=== PATIENT | male | born 1970 | race Two or more races ===

== ENCOUNTER 2024-02-25 14:06 | Observation (INO) | payer OTHER ==
[2024-02-25 14:41] LABS: Basophils # (A) 0.1 k/uL (0-0.2); Basophils % (A) 0 %; Eosinophils # (A) 0.3 k/uL (0-0.7); Eosinophils % (A) 2 %; HCT 33.7 % (39.0-53.0); HGB 11.4 gm/dL (13.0-17.5); Lymphocytes # (A) 1.5 k/uL (1.0-4.8); Lymphocytes % (A) 10 %; MCH 32.6 pg (25.0-35.0); MCV 95.9 fL (80.0-100.0); Mean Platelet Volume 6.8; Monocytes # (A) 0.7 k/uL (0-1.0); Monocytes % (A) 5 %; Neutrophils # (A) 13.1 k/uL (1.3-7.7); Neutrophils % (A) 83 %; Platelet Count 458 k/uL (150-450); RBC 3.52 m/uL (4.30-5.90); RDW 12.1 % (11.5-15.5); WBC 15.9 k/uL (3.8-10.6)
[2024-02-25 14:52] LABS: ALT 96 U/L (4-49); AST 78 U/L (17-59); African American GFR (CKD) >90 (>60 ml/min/1.73 sqM); Albumin 3.3 g/dL (3.5-5.0); Alkaline Phosphatase 268 U/L (38-126); Amylase 39 U/L (30-110); Anion Gap 8 mmol/L; Blood Urea Nitrogen 13 mg/dL (9-20); Calcium 8.6 mg/dL (8.4-10.2); Carbon Dioxide 26 mmol/L (22-30); Chloride 91 mmol/L (98-107); Glucose 98 mg/dL (74-99); Lipase 190 U/L (23-300); Non-African American GFR(CKD) >90 (>60 ml/min/1.73 sqM); Potassium 3.9 mmol/L (3.5-5.1); Sodium 125 mmol/L (137-145); Total Bilirubin 2.1 mg/dL (0.2-1.3); Total Protein 6.1 g/dL (6.3-8.2)
[2024-02-25 14:54] LABS: INR 1.1 (<1.2); Prothrombin Time 11.7 sec (10.0-12.5)
[2024-02-25 14:56] LABS: Partial Thromboplastin Time 20.9 sec (22.0-30.0)
--- NOTE | 2024-02-25 15:15 | ED ---
General Adult HPI - General Chief complaint: Abdominal Pain Stated complaint: Abd pain Time Seen by Provider: 02/25/24 14:10 Source: patient, EMS, RN notes reviewed, old records reviewed Mode of arrival: EMS Limitations: no limitations - History of Present Illness Initial comments: Is a 53-year-old male who presents to the emergency department from [facility]. Patient was sent to us because they diagnosed him with acute cholecystitis and wanted him to see a surgeon here. Patient states symptoms started about a week ago anytime he ate certain foods it would get right upper quadrant pain. Patient states he has been nauseous and vomited. Patient denies chest pain difficulty breathing. Patient denies any fever chills - Related Data Home Medications Medication Instructions Recorded Confirmed LORazepam [Ativan] 1 mg PO TID 09/24/13 09/24/13 Ziprasidone [Geodon] 80 mg PO ONCE 09/24/13 09/24/13 Previous Rx's Medication Instructions Recorded Divalproex ER [Depakote ER] 1,000 mg PO HS #30 tab.er.24h 09/30/13 Gabapentin [Neurontin] 600 mg PO TID #90 cap 09/30/13 Earth Carbonate 450 mg PO BID #60 cap 09/30/13 Tiotropium 18 Mcg/Puff [Spiriva] 1 puff INHALATION RT-DAILY 30 Days 09/30/13 inhaler Ziprasidone [Geodon] 80 mg PO HS #30 cap 09/30/13 chlorproMAZINE [Thorazine] 100 mg PO TID #90 tab 09/30/13 Allergies Allergy/AdvReac Type Severity Reaction Status Date / Time desipramine HCl Allergy Rash/Hives Verified 02/25/24 14:16 [From Norpramin] diphenhydramine HCl Allergy Nausea & Verified 02/25/24 14:16 [From Benadryl] Vomiting grapefruit [Grapefruit] Allergy Swelling Verified 02/25/24 14:16 hydroxyzine HCl Allergy Nausea & Verified 02/25/24 14:16 [From Vistaril] Vomiting hydroxyzine pamoate Allergy Nausea & Verified 02/25/24 14:16 [From Vistaril] Vomiting olanzapine [From Zyprexa] Allergy Confusion Verified 02/25/24 14:16 orange juice [Faulk Juice] Allergy Swelling Verified 02/25/24 14:16 pineapple [Pineapple] Allergy Swelling Verified 02/25/24 14:16 quetiapine fumarate Allergy Rapid Verified 02/25/24 14:16 [From Seroquel] Heart Rate sulfamethoxazole AdvReac Rash/Hives Verified 02/25/24 14:16 [From Bactrim] tomato [Tomato] AdvReac Swelling Verified 02/25/24 14:16 trimethoprim [From Bactrim] AdvReac Rash/Hives Verified 02/25/24 14:16 Review of Systems ROS Statement: Those systems with pertinent positive or pertinent negative responses have been documented in the HPI. ROS Other: All systems not noted in ROS Statement are negative. Past Medical History Past Medical History: COPD Additional Past Medical History / Comment(s): bipolar, borderline disorder, anxiety ptsd History of Any Multi-Drug Resistant Organisms: None Reported Past Surgical History: Orthopedic Surgery Additional Past Surgical History / Comment(s): kidney bladder Past Psychological History: Anxiety, Bipolar, Depression, Panic Disorder, PTSD, Schizoaffective Disorder Past Alcohol Use History: Occasional Past Drug Use History: None Reported General Exam - General Exam Comments Initial Comments: GENERAL: Patient is well-developed and well-nourished. Patient is nontoxic and well- hydrated and is in mild distress. ENT: Neck is soft and supple. No significant lymphadenopathy is noted. Oropharynx is clear. Moist mucous membranes. Neck has full range of motion without eliciting any pain. EYES: The sclera were anicteric and conjunctiva were pink and moist. Extraocular movements were intact and pupils were equal round and reactive to light. Eyelids were unremarkable. PULMONARY: Unlabored respirations. Good breath sounds bilaterally. No audible rales rhonchi or wheezing was noted. CARDIOVASCULAR: There is a regular rate and rhythm without any murmurs gallops or rubs. ABDOMEN: Right upper quadrant abdominal pain SKIN: Skin is clear with no lesions or rashes and otherwise unremarkable. NEUROLOGIC: Patient is alert and oriented x3. Cranial nerves II through XII are grossly int act. Motor and sensory are also intact. Normal speech, volume and content. Symmetrical smile. MUSCULOSKELETAL: Normal extremities with adequate strength and full range of motion. LYMPHATICS: No significant lymphadenopathy is noted PSYCHIATRIC: Normal psychiatric evaluation. Limitations: no limitations Course Vital Signs 02/25/24 14:08 Temperature 99.2 F Pulse Rate 99 Respiratory 18 Rate Blood Pressure 141/95 O2 Sat by Pulse 99 Oximetry Medical Decision Making - Medical Decision Making EKG is interpreted by myself but EKG shows a sinus rhythm at 89 bpm OR interval 157 QRS 94 QT interval 335 QTc of 381. Patient's EKG shows no ST segment elevation or depression Was pt. sent in by a medical professional or institution (NEREIDA Sidhu, OTM CONSULTANT, urgent care, hospital, or senior care...) When possible be specific @ -No Did you speak to anyone other than the patient for history (EMS, parent, family, police, friend...)? What history was obtained from this source @ -No Did you review nursing and triage notes (agree or disagree)? Why? @ -I reviewed and agree with nursing and triage notes Were old charts reviewed (outside hosp., previous admission, EMS record, old EKG, old radiological studies, urgent care reports/EKG's, senior care records)? Report findings @ -No old charts were reviewed Differential Diagnosis? @ -Differential Abdominal Pain Men: Appendicitis, cholecystitis, diverticulosis, ischemic bowel, pancreatitis, hepatitis, UTI, gastroenteritis, AAA, incarcerated hernia, bowel obstruction, constipation, inflammatory bowel, hepatitis, peptic ulcer disease, splenic infarction, perforated viscus, testicular torsion, this is not meant to be an all-inclusive list EKG interpreted by me (3pts min.). @ -As above X-rays interpreted by me (1pt min.). @ -None done CT interpreted by me (1pt min.). @ -None done U/S interpreted by me (1pt. min.). @ -None done What testing was considered but not performed or refused? (CT, X-rays, U/S, labs)? Why? @ -None What meds were considered but not given or refused? Why? @ -None Did you discuss the management of the patient with other professionals (professionals i.e. NEREIDA Sidhu, OTM CONSULTANT, lab, RT, psych nurse, family welfare social work professor, terrazzo polisher helper, teacher, sheriffs officer, showcase maker)? Give summary @ -I spoke with Dr. Hermosillo he agreed to admit the patient admitted the patient I wrote admitting orders Was smoking cessation discussed for >3mins.? @ -No Was critical care preformed (if so, how long)? @ -No Were there social determinants of health that impacted care today? How? (Homelessness, low income, unemployed, alcoholism, drug addiction, transportation, low edu. Level, literacy, decrease access to med. care, snf, rehab)? @ -No Was there de-escalation of care discussed even if they declined (Discuss DNR or withdrawal of care, Hospice)? DNR status @ -No What co-morbidities impacted this encounter? (DM, HTN, Smoking, COPD, CAD, Cancer, CVA, ARF, Chemo, Hep., AIDS, mental health diagnosis, sleep apnea, morbid obesity)? @ -None Was patient admitted / discharged? Hospital course, mention meds given and route, prescriptions, significant lab abnormalities, going to OR and other pe rtinent info. @ -Patient came from [facility] patient did receive a CAT scan there as well as Zosyn. I spoke with Dr. Hermosillo he agreed to admit the patient admit the patient I wrote admitting orders I did give the patient a fluid bolus of 500 cc of normal saline because the patient had a sodium of 125. Undiagnosed new problem with uncertain prognosis? @ -No Drug Therapy requiring intensive monitoring for toxicity (Heparin, Nitro, Insulin, Cardizem)? @ -No Were any procedures done? @ -No Diagnosis/symptom? @ -Acute cholecystitis Acute, or Chronic, or Acute on Chronic? @ -Acute Uncomplicated (without systemic symptoms) or Complicated (systemic symptoms)? @ -Complicated Side effects of treatment? @ -No Exacerbation, Progression, or Severe Exacerbation? @ -No Poses a threat to life or bodily function? How? (Chest pain, USA, NH, pneumonia, PE, COPD, DKA, ARF, appy, cholecystitis, CVA, Diverticulitis, Homicidal, Suicidal, threat to staff... and all critical care pts) @ -Yes this could lead to sepsis and endorgan dysfunction Diagnosis/symptom? @ -Hyponatremia Acute, or Chronic, or Acute on Chronic? @ -Acute Uncomplicated (without systemic symptoms) or Complicated (systemic symptoms)? @ -Complicated Side effects of treatment? @ -None Exacerbation, Progression, or Severe Exacerbation] @ -No Poses a threat to life or bodily function? @ -No - Lab Data Result diagrams: 02/25/24 14:27 02/25/24 14:27 Lab Results 02/25/24 02/25/24 02/25/24 Range/Units 14:27 14:27 14:27 WBC 15.9 H (3.8-10.6) k/uL RBC 3.52 L (4.30-5.90) m/uL Hgb 11.4 L (13.0-17.5) gm/dL Hct 33.7 L (39.0-53.0) % MCV 95.9 (80.0-100.0) fL MCH 32.6 (25.0-35.0) pg MCHC 34.0 (31.0-37.0) g/dL RDW 12.1 (11.5-15.5) % Plt Count 458 H (150-450) k/uL MPV 6.8 Neutrophils % 83 % Lymphocytes % 10 % Monocytes % 5 % Eosinophils % 2 % Basophils % 0 % Neutrophils # 13.1 H (1.3-7.7) k/uL Lymphocytes # 1.5 (1.0-4.8) k/uL Monocytes # 0.7 (0-1.0) k/uL Eosinophils # 0.3 (0-0.7) k/uL Basophils # 0.1 (0-0.2) k/uL PT 11.7 (10.0-12.5) sec INR 1.1 (<1.2) APTT 20.9 L (22.0-30.0) sec Sodium 125 L (137-145) mmol/L Potassium 3.9 (3.5-5.1) mmol/L Chloride 91 L (98-107) mmol/L Carbon Dioxide 26 (22-30) mmol/L Anion Gap 8 mmol/L BUN 13 (9-20) mg/dL Creatinine 0.97 (0.66-1.25) mg/dL Est GFR (CKD-EPI)AfAm >90 (>60 ml/min/1.73 sqM) Est GFR (CKD-EPI)NonAf >90 (>60 ml/min/1.73 sqM) Glucose 98 (74-99) mg/dL Calcium 8.6 (8.4-10.2) mg/dL Total Bilirubin 2.1 H (0.2-1.3) mg/dL AST 78 H (17-59) U/L ALT 96 H (4-49) U/L Alkaline Phosphatase 268 H (38-126) U/L Total Protein 6.1 L (6.3-8.2) g/dL Albumin 3.3 L (3.5-5.0) g/dL Amylase 39 (30-110) U/L Lipase 190 (23-300) U/L Disposition Clinical Impression: Acute cholecystitis, Hyponatremia Disposition: ADMITTED IP TO THIS HOSP Referrals: Dominik Ashton MD [Primary Care Provider] - 1-2 days Time of Disposition: 15:14
[2024-02-25] MEDS: HYDROmorphone 0.5 MG/0.5 ML SYRINGE IVP STA (15:18)
[2024-02-25] MEDS: PIPERACILLIN-TAZOBACTAM 3.375 GM in SODIUM CHLORIDE 0.9% 100 ML IVPB STA (15:37)
[2024-02-25] MEDS: SODIUM CHLORIDE 0.9% 1,000 ML IV ONE (15:42)
[2024-02-25] MEDS ORDERED: haloperidoL 5 MG TAB PO PRN (18:35)
[2024-02-25] MEDS ORDERED: HYDROmorphone 1 MG/ML 1 ML SYRINGE IVP PRN (20:30)
[2024-02-25] MEDS: ATORVASTATIN 10 MG TAB PO SCH (21:35)
[2024-02-25] MEDS: AMITRIPTYLINE HCL 50 MG TAB PO SCH (21:35)
[2024-02-25] MEDS: haloperidoL 5 MG TAB PO SCH (21:35)
[2024-02-25] MEDS: traZODone HCL 100 MG TAB PO SCH (21:35)
[2024-02-25] MEDS: HYDROmorphone 1 MG/ML 1 ML SYRINGE IVP PRN (21:36)
[2024-02-26] MEDS: PIPERACILLIN-TAZOBACTAM 3.375 GM in SODIUM CHLORIDE 0.9% 100 ML IVPB SCH (00:45)
[2024-02-26] MEDS: NON FORMULARY DRUG (Lisdexamfetamine Dimesylate [Vyvanse] 70 MG Capsule) PO SCH (08:02)
[2024-02-26] MEDS: SODIUM CHLORIDE 0.9% 1,000 ML IV SCH (08:04)
[2024-02-26 09:34] LABS: Basophils # (A) 0.1 k/uL (0-0.2); Basophils % (A) 0 %; Eosinophils # (A) 0.3 k/uL (0-0.7); Eosinophils % (A) 3 %; HCT 31.7 % (39.0-53.0); HGB 10.9 gm/dL (13.0-17.5); Lymphocytes # (A) 1.5 k/uL (1.0-4.8); Lymphocytes % (A) 12 %; MCH 33.7 pg (25.0-35.0); MCHC 34.3 g/dL (31.0-37.0); MCV 98.1 fL (80.0-100.0); Mean Platelet Volume 6.4; Monocytes # (A) 0.7 k/uL (0-1.0); Monocytes % (A) 5 %; Neutrophils # (A) 10.1 k/uL (1.3-7.7); Neutrophils % (A) 79 %; Platelet Count 473 k/uL (150-450); RBC 3.23 m/uL (4.30-5.90); RDW 11.7 % (11.5-15.5); WBC 12.7 k/uL (3.8-10.6)
[2024-02-26 09:48] LABS: ALT 77 U/L (4-49); AST 54 U/L (17-59); African American GFR (CKD) >90 (>60 ml/min/1.73 sqM); Albumin 2.8 g/dL (3.5-5.0); Alkaline Phosphatase 261 U/L (38-126); Anion Gap 3 mmol/L; Blood Urea Nitrogen 12 mg/dL (9-20); Calcium 8.3 mg/dL (8.4-10.2); Carbon Dioxide 31 mmol/L (22-30); Chloride 95 mmol/L (98-107); Globulin 2.8 g/dL; Glucose 94 mg/dL (74-99); Non-African American GFR(CKD) 89 (>60 ml/min/1.73 sqM); Sodium 129 mmol/L (137-145); Total Bilirubin 1.5 mg/dL (0.2-1.3); Total Protein 5.6 g/dL (6.3-8.2)
[2024-02-26] MEDS: IV FLUID CONTINUATION 1,000 ML IV ONE ×5 (09:55)
--- NOTE | 2024-02-26 10:02 | P.GSHP ---
History of Present Illness H&P Date: 02/26/24 CHIEF COMPLAINT: Abdominal pain HISTORY OF PRESENT ILLNESS: This is a 53-year-old male who presented the hospital as a transfer from [facility]. He reports about a 2-week history of lower right upper quadrant pain with nausea and vomiting after eating certain foods. Patient had workup completed at [facility] that had reported acute cholecystitis. Patient transferred to [facility] for surgical evaluation. Patient did have elevated LFTs and total bilirubin that are trending downwards. Patient has a history of bladder surgery and kidney surgery as a child.. Denies any cardiac history. PAST MEDICAL HISTORY: COPD, bipolar, anxiety, PTSD, schizoaffective disorder PAST SURGICAL HISTORY: Kidney and bladder surgery as a child MEDICATIONS: See below ALLERGIES: See below SOCIAL HISTORY: No illicit drug use. Occasional EtOH use. REVIEW OF SYSTEMS: CONSTITUTIONAL: Denies fever or chills. HEENT: Denies blurred vision, vision changes, or eye pain. Denies hemoptysis CARDIOVASCULAR: Denies chest pain or pressure. RESPIRATORY: No shortness of breath. GASTROINTESTINAL: See HPI for pertinent findings HEMATOLOGIC: Denies bleeding disorders. GENITOURINARY: Denies any blood in urine or increased urinary frequency. SKIN: Denies pruitis. Denies rash. PHYSICAL EXAM: VITAL SIGNS: Reviewed GENERAL: Well-developed in no acute distress. HEENT: No sclera icterus. ABDOMEN: Soft. Nondistended. Right upper quadrant tenderness and epigastric tenderness with palpation. No rebound or guarding. NEUROLOGIC: Alert and oriented. Cranial nerves II through XII grossly intact. LABORATORY DATA: WBC 15.9 down to 12.7 Hgb 11.4 down to 10.9 platelets 473 Sodium 129 potassium is 4.0 creatinine 0.98 Total bilirubin down from 2.1-1.5 AST 78 down to 54 ALT 96 down to 77 alk phos 268 down to 261 IMAGING: ASSESSMENT: 1. Acute cholecystitis 2. Hyponatremia PLAN: -Patient scheduled for laparoscopic cholecystectomy today with Dr. Hermosillo -Keep patient n.p.o. -Continue IV antibiotics Physician Aircraft Maintenance Director note has been reviewed by physician. Signing provider agrees with the documented findings, assessment, and plan of care. Past Medical History Past Medical History: COPD, Hyperlipidemia Additional Past Medical History / Comment(s): bipolar, borderline disorder, anxiety ptsd History of Any Multi-Drug Resistant Organisms: None Reported Past Surgical History: Orthopedic Surgery Additional Past Surgical History / Comment(s): kidney bladder Smoking Status: Current every day smoker, Vaper - Past Family History Mother History Unknown: Yes Medications and Allergies Home Medications Medication Instructions Recorded Confirmed Type ALPRAZolam [Xanax] 1 mg PO QID PRN 02/25/24 02/25/24 History Amitriptyline HCl [Elavil] 50 mg PO HS 02/25/24 02/25/24 History Atorvastatin [Lipitor] 10 mg PO HS 02/25/24 02/25/24 History Haloperidol Decanoate [Haldol D] 200 mg IM Q21D 02/25/24 02/25/24 History Lisdexamfetamine Dimesylate 70 mg PO DAILY 02/25/24 02/25/24 History [Vyvanse] haloperidoL [Haldol] 5 mg PO DAILY PRN 02/25/24 02/25/24 History haloperidoL [Haldol] 5 mg PO HS 02/25/24 02/25/24 History traZODone HCL 300 mg PO HS 02/25/24 02/25/24 History Allergies Allergy/AdvReac Type Severity Reaction Status Date / Time desipramine HCl Allergy Rash/Hives Verified 02/25/24 15:36 [From Norpramin] diphenhydramine HCl Allergy Nausea & Verified 02/25/24 15:36 [From Benadryl] Vomiting grapefruit [Grapefruit] Allergy Swelling Verified 02/25/24 15:36 hydroxyzine HCl Allergy Nausea & Verified 02/25/24 15:36 [From Vistaril] Vomiting hydroxyzine pamoate Allergy Nausea & Verified 02/25/24 15:36 [From Vistaril] Vomiting olanzapine [From Zyprexa] Allergy Confusion Verified 02/25/24 15:36 orange juice [Perry Juice] Allergy Blisters Verified 02/25/24 15:36 pineapple [Pineapple] Allergy Swelling Verified 02/25/24 15:36 quetiapine fumarate Allergy Rapid Verified 02/25/24 15:36 [From Seroquel] Heart Rate sulfamethoxazole AdvReac Rash/Hives Verified 02/25/24 15:36 [From Bactrim] tomato [Tomato] AdvReac Swelling Verified 02/25/24 15:36 trimethoprim [From Bactrim] AdvReac Rash/Hives Verified 02/25/24 15:36 Surgical - Exam Vital Signs Temp Pulse Resp BP Pulse Ox 99.2 F 99 18 141/95 99 02/25/24 14:08 02/25/24 14:08 02/25/24 14:08 02/25/24 14:08 02/25/24 14:08 Results - Labs 02/26/24 09:22 02/26/24 09:22 Abnormal Lab Results - Last 24 Hours (Table) 02/25/24 02/25/24 02/25/24 Range/Units 14:27 14:27 14:27 WBC 15.9 H (3.8-10.6) k/uL RBC 3.52 L (4.30-5.90) m/uL Hgb 11.4 L (13.0-17.5) gm/dL Hct 33.7 L (39.0-53.0) % Plt Count 458 H (150-450) k/uL Neutrophils # 13.1 H (1.3-7.7) k/uL APTT 20.9 L (22.0-30.0) sec Sodium 125 L (137-145) mmol/L Chloride 91 L (98-107) mmol/L Carbon Dioxide (22-30) mmol/L Calcium (8.4-10.2) mg/dL Total Bilirubin 2.1 H (0.2-1.3) mg/dL AST 78 H (17-59) U/L ALT 96 H (4-49) U/L Alkaline Phosphatase 268 H (38-126) U/L Total Protein 6.1 L (6.3-8.2) g/dL Albumin 3.3 L (3.5-5.0) g/dL 02/26/24 02/26/24 Range/Units 09:22 09:22 WBC 12.7 H (3.8-10.6) k/uL RBC 3.23 L (4.30-5.90) m/uL Hgb 10.9 L (13.0-17.5) gm/dL Hct 31.7 L (39.0-53.0) % Plt Count 473 H (150-450) k/uL Neutrophils # 10.1 H (1.3-7.7) k/uL APTT (22.0-30.0) sec Sodium 129 L (137-145) mmol/L Chloride 95 L (98-107) mmol/L Carbon Dioxide 31 H (22-30) mmol/L Calcium 8.3 L (8.4-10.2) mg/dL Total Bilirubin 1.5 H (0.2-1.3) mg/dL AST (17-59) U/L ALT 77 H (4-49) U/L Alkaline Phosphatase 261 H (38-126) U/L Total Protein 5.6 L (6.3-8.2) g/dL Albumin 2.8 L (3.5-5.0) g/dL Diabetes panel 02/25/24 02/26/24 Range/Units 14:27 09:22 Sodium 125 L 129 L (137-145) mmol/L Potassium 3.9 4.0 (3.5-5.1) mmol/L Chloride 91 L 95 L (98-107) mmol/L Carbon Dioxide 26 31 H (22-30) mmol/L BUN 13 12 (9-20) mg/dL Creatinine 0.97 0.98 (0.66-1.25) mg/dL Glucose 98 94 (74-99) mg/dL Calcium 8.6 8.3 L (8.4-10.2) mg/dL AST 78 H 54 (17-59) U/L ALT 96 H 77 H (4-49) U/L Alkaline Phosphatase 268 H 261 H (38-126) U/L Total Protein 6.1 L 5.6 L (6.3-8.2) g/dL Albumin 3.3 L 2.8 L (3.5-5.0) g/dL Calcium panel 02/25/24 02/26/24 Range/Units 14:27 09:22 Calcium 8.6 8.3 L (8.4-10.2) mg/dL Albumin 3.3 L 2.8 L (3.5-5.0) g/dL Pituitary panel 02/25/24 02/26/24 Range/Units 14:27 09:22 Sodium 125 L 129 L (137-145) mmol/L Potassium 3.9 4.0 (3.5-5.1) mmol/L Chloride 91 L 95 L (98-107) mmol/L Carbon Dioxide 26 31 H (22-30) mmol/L BUN 13 12 (9-20) mg/dL Creatinine 0.97 0.98 (0.66-1.25) mg/dL Glucose 98 94 (74-99) mg/dL Calcium 8.6 8.3 L (8.4-10.2) mg/dL Adrenal panel 02/25/24 02/26/24 Range/Units 14:27 09:22 Sodium 125 L 129 L (137-145) mmol/L Potassium 3.9 4.0 (3.5-5.1) mmol/L Chloride 91 L 95 L (98-107) mmol/L Carbon Dioxide 26 31 H (22-30) mmol/L BUN 13 12 (9-20) mg/dL Creatinine 0.97 0.98 (0.66-1.25) mg/dL Glucose 98 94 (74-99) mg/dL Calcium 8.6 8.3 L (8.4-10.2) mg/dL Total Bilirubin 2.1 H 1.5 H (0.2-1.3) mg/dL AST 78 H 54 (17-59) U/L ALT 96 H 77 H (4-49) U/L Alkaline Phosphatase 268 H 261 H (38-126) U/L Total Protein 6.1 L 5.6 L (6.3-8.2) g/dL Albumin 3.3 L 2.8 L (3.5-5.0) g/dL
[2024-02-26] MEDS: ACETAMINOPHEN TAB 500 MG TAB PO STA (10:33)
[2024-02-26] MEDS: HEPARIN SODIUM,PORCINE 5,000 UNIT/ML 1 ML VIAL SQ STA (10:49)
[2024-02-26] MEDS ORDERED: PROPOFOL 10 MG/ML 20 ML VIAL IV ONE (10:53)
[2024-02-26] MEDS ORDERED: HYDROmorphone (PF) 1 MG/ML ONE (10:53)
[2024-02-26] MEDS ORDERED: GLYCOPYRROLATE 0.2 MG/ML 2 ML VIAL ONE (10:53)
[2024-02-26] MEDS ORDERED: MIDAZOLAM 2 MG/2 ML VIAL ONE (10:53)
[2024-02-26] MEDS ORDERED: fentaNYL (PF) 50 MCG/ML 2 ML AMP ONE (10:53)
[2024-02-26] MEDS ORDERED: SUCCINYLCHOLINE CHLORIDE 200 MG/10 ML VIAL IV ONE (10:53)
[2024-02-26] MEDS ORDERED: NEOSTIGMINE 1 MG/ML 10 ML VIAL ONE (10:53)
[2024-02-26] MEDS ORDERED: LIDOCAINE 1% INJ 10MG/ML (20 ML MDV) ONE (10:53)
[2024-02-26] MEDS ORDERED: ROCURONIUM 10 MG/ML (5 ML VIAL) IV ONE (10:53)
[2024-02-26] MEDS: LIDOCAINE 1%-EPI 1:100,000 20 ML VIAL SQ ONE (11:18)
--- NOTE | 2024-02-26 12:10 | P.OP ---
Date of Procedure: 02/26/24 Preoperative Diagnosis: Acute cholecystitis Postoperative Diagnosis: Gangrenous cholecystitis Procedure(s) Performed: Laparoscopic cholecystectomy Anesthesia: EVANGELINA Surgeon: Regan Hermosillo Estimated Blood Loss (ml): 50 Pathology: other (Gallbladder) Condition: stable Disposition: PACU Description of Procedure: The patient was placed on the operating table. The patient received a general endotracheal tube anesthesia. The patients abdomen was prepped and draped in the usual sterile fashion. Through an infraumbilical stab incision, the fascia of the anterior abdominal wall was grasped with a pair of Kochers and then the Veress needle was placed in the peritoneal cavity. Position of the Veress needle was confirmed with positive drop test. The abdomen was then insufflated. After adequate insufflation, the 10 mm trocar was placed in the peritoneal cavity. Following this the laparoscope was placed in the peritoneal cavity. The patient was placed in the head-up, right side up position and then a 5 mm trocar was placed in the right lateral and right subcostal position under direct visualization. A 8 mm trocar was placed in the epigastric position. The gallbladder appeared to be very inflamed. There is evidence of gangrenous wall changes of the gallbladder. The gallbladder was grasped in the fundus and infundibulum. Traction on the gallbladder was placed in the lateral and the cephalad positions. The area of the cystic duct was very inflamed. In order to prevent a common body injury. It was divided to divide the gallbladder at the neck of the gallbladder. Using a [place] retractor the neck of the gallbladder was dissected. And then a 2-0 Ethibond suture was placed on the neck of the gallbladder. And then this is secured with the tie knot device. Once the neck of the gallbladder was ligated. Using the harmonic scissors the gallbladder was divided and then the bed of the gallbladder was divided using the harmonic scissors. The gallbladder removed from liver bed. The posterior wall was necrotic as well. Once the gallbladder was removed. The gallbladder is placed in a 10 mm Endo Catch and brought out through the epigastric port site. The eye was irrigated. The liver was coagulated with electrocautery. A JUSTO drain was placed in the gallbladder fossa and brought out through the epigastric port site. The skin was then closed interrupted 3-0 Monocryl suture. Dermabond was applied. Patient tolerated well. She was sent to recovery room in stable condition.
[2024-02-26] MEDS ORDERED: ONDANSETRON 4 MG/2 ML VIAL IVP PRN (12:11)
[2024-02-26] MEDS ORDERED: ACETAMINOPHEN TAB 325 MG TAB PO PRN (12:11)
[2024-02-26] MEDS ORDERED: NALOXONE 0.4 MG/ML 1 ML VIAL IV PRN (12:11)
[2024-02-26] MEDS: HYDROmorphone 0.5 MG/0.5 ML SYRINGE IVP PRN ×2 (12:41→13:04)
[2024-02-26] MEDS: LACTATED RINGERS 1,000 ML IV SCH (13:19)
[2024-02-26] MEDS: HYDROcodone/APAP 5-325MG 1 EACH TAB PO PRN (16:45)
[2024-02-26] MEDS: ALPRAZolam 1 MG TAB PO PRN (16:48)
[2024-02-26] MEDS: KETOROLAC 15 MG/ML 1 ML VIAL IVP SCH (18:29)
--- NOTE | 2024-02-27 02:35 | CONS ---
CONSULTATION REASON FOR CONSULTATION: Advice regarding COPD and bipolar and other associated issues, requested by Psychiatry. HISTORY OF PRESENT ILLNESS: This 53-year-old gentleman with a past medical history of COPD, hyperlipidemia, underwent laparoscopic cholecystectomy for gangrenous cholecystitis. There is no history of chest pain or palpitation. PAST MEDICAL HISTORY: COPD, hyperlipidemia. Rest of the history and rest of the chart is also reviewed. HOME MEDICATIONS: Reviewed include trazodone. Dose and rest of medications reviewed. ALLERGIES: Multiple allergies reviewed include Benadryl, multiple allergies noted. FAMILY HISTORY: No history of heart disease or strokes in the family. SOCIAL HISTORY: History of smoking, vaping. REVIEW OF SYSTEMS: A 14-point review of systems is negative except as mentioned earlier. PHYSICAL EXAM: VITAL SIGNS: Pulse is 91, blood pressure 120/88, respirations 16. HEENT: Conjunctivae normal. CARDIOVASCULAR: S1. S2. RESPIRATIONS: Few scattered rhonchi. ABDOMEN: Soft, status post surgery. LEGS: No edema. No swelling. NERVOUS SYSTEM: Nonfocal. LABORATORY DATA: Reviewed. ASSESSMENT: 1. Laparoscopic cholecystectomy for gangrenous cholecystitis. 2. Elevated WBC. 3. Hyponatremia. 4. Elevated bilirubin and LFTs. 5. Chronic obstructive pulmonary disease. 6. Hyperlipidemia. 7. Bipolar, anxiety, depression, panic disorder, PTSD, schizoaffective disorder. RECOMMENDATION: This 53-year-old gentleman presented with multiple complex medical issues, we will monitor the patient closely, continue the current symptomatic treatment. We will initiate broad-spectrum IV antibiotics. Otherwise, continue to monitor. Resume the home medications. DVT prophylaxis. Guarded prognosis. Further recommendations to follow. MMODL / IJN: [id number] /
[2024-02-27 08:17] VITALS: RESP 18; TEMP 97.4
[2024-02-27] MEDS: ENOXAPARIN 40 MG/0.4 ML SYRINGE SQ SCH (08:27)
[2024-02-27 08:57] LABS: ALT 64 U/L (10-49); AST 55 U/L (14-35); Albumin 2.9 g/dL (3.8-4.9); Albumin/Globulin Ratio 1.32 Ratio (1.60-3.17); Alkaline Phosphatase 222 U/L (41-126); BUN/Creat Ratio 8.67 Ratio (12.00-20.00); Blood Urea Nitrogen 7.8 mg/dL (9.0-27.0); Calcium 7.9 mg/dL (8.7-10.3); Carbon Dioxide 25.8 mmol/L (21.6-31.8); Chloride 97 mmol/L (96-109); Globulin 2.2 g/dL (1.6-3.3); Glucose 103 mg/dL (70-110); Potassium 4.1 mmol/L (3.5-5.5); Sodium 130 mmol/L (135-145); Total Bilirubin 0.9 mg/dL (0.3-1.2); Total Protein 5.1 g/dL (6.2-8.2)
[2024-02-27 08:59] LABS: Basophils # (A) 0.05 X 10*3/uL (0.00-0.10); Basophils % (A) 0.7 %; Eosinophils # (A) 0.47 X 10*3/uL (0.04-0.35); Eosinophils % (A) 6.7 %; HCT 26.5 % (39.6-50.0); HGB 8.8 g/dL (13.0-17.0); Lymphocytes % (A) 22.9 %; MCHC 33.2 g/dL (32.0-37.0); MCV 96.4 FL (80.0-97.0); Mean Platelet Volume 8.2 FL (9.5-12.2); Monocytes # (A) 0.53 X 10*3/uL (0.20-1.00); Monocytes % (A) 7.6 %; NRBC Per 100 WBC 0 X 10*3/uL (0.00-0.01); Neutrophils # (A) 4.29 X 10*3/uL (1.80-7.70); Neutrophils % (A) 61.4 %; Platelet Count 410 X 10*3/uL (140-440); RBC 2.75 X 10*6/uL (4.40-5.60); RDW 12.2 % (11.5-14.5); WBC 6.99 X 10*3/uL (4.50-10.00)
[2024-02-27] MEDS: DOCUSATE 100 MG CAP PO SCH (11:00)
--- NOTE | 2024-02-27 12:58 | P.DS ---
Providers Date of admission: 02/25/24 15:26 Expected date of discharge: 02/27/24 Attending physician: Regan Hermosillo Consults: 02/25/24 18:37 Consult Physician Routine Consulting Provider: Josué Cates Consult Reason/Comments: medical management Do you want consulting provider notified?: Yes Primary care physician: Dominik [facility] Hospital Course: Discharge diagnosis 1. Gangrenous cholecystitis Hospital course This is a 53-year-old male who presented the hospital as a transfer from [place]. He reports about a 2-week history of lower right upper quadrant pain with nausea and vomiting after eating certain foods. Patient had workup completed at [facility] that had reported acute cholecystitis. Patient transferred to [facility] for surgical evaluation. Patient did have elevated LFTs and total bilirubin with repeat labs trending down. Patient status post laparoscopic cholecystectomy. Tolerated surgery well. Pain is controlled. He is having flatus. He has been up and ambulating. He is afebrile. White count has normalized. Incision sites clean dry and intact. He is stable for discharge. Please refer to chart for any further details. Physician Anger Control Counselor note has been reviewed by physician. Signing provider agrees with the documented findings, assessment, and plan of care. Patient Condition at Discharge: Stable Plan - Discharge Summary New Discharge Prescriptions: New Docusate [Colace] 100 mg PO BID #30 capsule HYDROcodone/APAP 5-325MG [Mode 5-325] 1 tab PO Q6HR PRN 3 Days #12 tab PRN Reason: Pain Continue traZODone HCL 300 mg PO HS Amitriptyline HCl [Elavil] 50 mg PO HS ALPRAZolam [Xanax] 1 mg PO QID PRN PRN Reason: Anxiety haloperidoL [Haldol] 5 mg PO DAILY PRN PRN Reason: psychiatric sypmtoms Lisdexamfetamine Dimesylate [Vyvanse] 70 mg PO DAILY Haloperidol Decanoate [Haldol D] 200 mg IM Q21D haloperidoL [Haldol] 5 mg PO HS Atorvastatin [Lipitor] 10 mg PO HS Discharge Medication List ALPRAZolam [Xanax] 1 mg PO QID PRN 02/25/24 [History] Amitriptyline HCl [Elavil] 50 mg PO HS 02/25/24 [History] Atorvastatin [Lipitor] 10 mg PO HS 02/25/24 [History] Haloperidol Decanoate [Haldol D] 200 mg IM Q21D 02/25/24 [History] Lisdexamfetamine Dimesylate [Vyvanse] 70 mg PO DAILY 02/25/24 [History] haloperidoL [Haldol] 5 mg PO DAILY PRN 02/25/24 [History] haloperidoL [Haldol] 5 mg PO HS 02/25/24 [History] traZODone HCL 300 mg PO HS 02/25/24 [History] Docusate [Colace] 100 mg PO BID #30 capsule 02/27/24 [Rx] HYDROcodone/APAP 5-325MG [Mode 5-325] 1 tab PO Q6HR PRN 3 Days #12 tab 02/27/24 [Rx] Follow up Appointment(s)/Referral(s): Dominik Ashton MD [Primary Care Provider] - 1-2 days Regan Hermosillo MD [STAFF PHYSICIAN] - 1 Week Activity/Diet/Wound Care/Special Instructions: No driving while taking Mode No lifting over 10 pounds Shower daily. No soaking or tub baths for 2 weeks Very light activity until you are reevaluated at your follow up appointment with your surgeon Keep a log of JUSTO drain output and bring with you to your follow-up appointment Milk/strip drains 2-3 times a day Repeat CBC lab work in 2 days with PCP Discharge Disposition: HOME SELF-CARE
[2024-02-27 13:53] VITALS: BP 118/79; PULSE 78
--- NOTE | 2024-02-28 01:14 | PN ---
PROGRESS NOTE DATE OF SERVICE: 02/27/2024 SUBJECTIVE: This is a 53-year-old gentleman admitted after laparoscopic cholecystectomy. He is improving significantly. No chest pain. No palpitation. OBJECTIVE: VITAL SIGNS: Pulse is 78, blood pressure 118/70, respirations 18. CHEST: Conjunctivae normal. NECK: No JVD. CARDIOVASCULAR: S1, S2. RESPIRATIONS: Breath sounds diminished at the bases. ABDOMEN: Soft, status post surgery. LABORATORY DATA: Reviewed. ASSESSMENT: 1. Laparoscopic cholecystomy for gangrenous cholecystitis. 2. Elevated WBC. 3. Hyponatremia. 4. Elevated bilirubin and LFTs. 5. Chronic obstructive pulmonary disease. 6. Hyperlipidemia. 7. Bipolar, anxiety, depression. RECOMMENDATIONS: Recommend to continue current medications and continue symptomatic treatment. Otherwise, at this time, white count is normalized. Recommend follow up in the outpatient setting and rest of the recommendations per Surgery. Follow closely with Primary Physician also. MMODL / IJN: [id number] /
== END 2024-02-27 14:38 | disposition home or self-care (01) ==
LOC: SUPCPDRO 14:06 → EC 14:06 → 4SSUR 15:26 → INTOOBSV 15:26 → 4SSUR 17:55
PROVIDERS: ADMIT Surgery; ATTEND Surgery
DX: K80.00 Calculus of gallbladder with acute cholecystitis without obstruction (principal); K82.A1 Gangrene of gallbladder in cholecystitis; E87.1 Hypo-osmolality and hyponatremia; F25.9 Schizoaffective disorder, unspecified; F31.9 Bipolar disorder, unspecified; F41.0 Panic disorder [episodic paroxysmal anxiety]; F43.10 Post-traumatic stress disorder, unspecified; F17.290 Nicotine dependence, other tobacco product, uncomplicated; J44.9 Chronic obstructive pulmonary disease, unspecified; E78.5 Hyperlipidemia, unspecified; Z79.899 Other long term (current) drug therapy; Z88.8 Allergy status to other drugs, medicaments and biological substances; Z88.2 Allergy status to sulfonamides
CPT/HCPCS: 47562; 96376 ×2; 96365; 96366 ×2; 96372; 96375; 99285; 36415; 93005; 88304; 80053 ×3; 82150; 83690; 85025 ×3; 85610; 85730; G0378 ×3; J2543 ×2; J2250; J0330; J1644; J2710; J2003; J1650; J3010; J1171 ×4; J1885 ×2; J2704; J1596; 96361; 96374

== ENCOUNTER 2024-03-04 21:33 | Observation (INO) | payer OTHER ==
--- NOTE | 2024-03-04 21:51 | ED ---
Abdominal Pain HPI - General Stated Complaint: Post op abd pain Time Seen by Provider: 03/04/24 21:36 - History of Present Illness Initial Comments: Patient is a 53-year-old man who presents to have evaluation of abdominal pain. The patient states that the pain started a little after noon today. He describes it as an aching and cramping. He indicates the area from suprapubic portion of the abdomen up to the epigastric. He states that he also has had some nausea and 2 episodes of vomiting. No hematemesis or coffee-ground's noted. The patient does note that he had laparoscopic cholecystectomy [address] Hermosillo[address] That he was feeling better following the surgery until today. Patient states he also was concerned because the area from the Emre- Stone drain insertion is somewhat firmer than usual and there is little bit of redness associated. MD Complaint: abdominal pain Onset/Timin -: hour(s) Location: periumbilical, epigastric, suprapubic Radiation: none Migration to: no migration Severity: moderate Quality: aching Consistency: constant Improves With: nothing Worsens With: nothing Associated Symptoms: nausea, vomiting - Related Data Home Medications Medication Instructions Recorded Confirmed ALPRAZolam [Xanax] 1 mg PO QID PRN 02/25/24 02/25/24 Amitriptyline HCl [Elavil] 50 mg PO HS 02/25/24 02/25/24 Atorvastatin [Lipitor] 10 mg PO HS 02/25/24 02/25/24 Haloperidol Decanoate [Haldol D] 200 mg IM Q21D 02/25/24 02/25/24 Lisdexamfetamine Dimesylate 70 mg PO DAILY 02/25/24 02/25/24 [Vyvanse] haloperidoL [Haldol] 5 mg PO DAILY PRN 02/25/24 02/25/24 haloperidoL [Haldol] 5 mg PO HS 02/25/24 02/25/24 traZODone HCL 300 mg PO HS 02/25/24 02/25/24 Previous Rx's Medication Instructions Recorded Docusate [Colace] 100 mg PO BID #30 capsule 02/27/24 HYDROcodone/APAP 5-325MG [[place] 1 tab PO Q6HR PRN 3 Days #12 tab 02/27/24 5-325] Allergies Allergy/AdvReac Type Severity Reaction Status Date / Time desipramine HCl Allergy Rash/Hives Verified 02/25/24 15:36 [From Norpramin] diphenhydramine HCl Allergy Nausea & Verified 02/25/24 15:36 [From Benadryl] Vomiting grapefruit [Grapefruit] Allergy Swelling Verified 02/25/24 15:36 hydroxyzine HCl Allergy Nausea & Verified 02/25/24 15:36 [From Vistaril] Vomiting hydroxyzine pamoate Allergy Nausea & Verified 02/25/24 15:36 [From Vistaril] Vomiting olanzapine [From Zyprexa] Allergy Confusion Verified 02/25/24 15:36 orange juice [[place] Juice] Allergy Blisters Verified 02/25/24 15:36 pineapple [Pineapple] Allergy Swelling Verified 02/25/24 15:36 quetiapine fumarate Allergy Rapid Verified 02/25/24 15:36 [From Seroquel] Heart Rate sulfamethoxazole AdvReac Rash/Hives Verified 02/25/24 15:36 [From Bactrim] tomato [Tomato] AdvReac Swelling Verified 02/25/24 15:36 trimethoprim [From Bactrim] AdvReac Rash/Hives Verified 02/25/24 15:36 Review of Systems ROS Statement: Those systems with pertinent positive or pertinent negative responses have been documented in the HPI. ROS Other: All systems not noted in ROS Statement are negative. Constitutional: Denies: fever, chills, weakness Respiratory: Denies: cough, dyspnea Cardiovascular: Denies: chest pain, palpitations, edema, syncope Gastrointestinal: Reports: abdominal pain, nausea, vomiting. Denies: diarrhea, constipation, melena, hematochezia Genitourinary: Denies: dysuria, frequency, hematuria, testicular pain Musculoskeletal: Denies: back pain Skin: Denies: rash Neurological: Denies: headache, weakness, numbness Past Medical History Past Medical History: COPD, Hyperlipidemia Additional Past Medical History / Comment(s): bipolar, borderline disorder, anxiety ptsd History of Any Multi-Drug Resistant Organisms: None Reported Past Surgical History: Orthopedic Surgery Additional Past Surgical History / Comment(s): kidney bladder Smoking Status: Current every day smoker, Vaper - Past Family History Mother History Unknown: Yes General Exam General appearance: alert, in no apparent distress Head exam: Present: atraumatic, normocephalic Eye exam: Present: normal appearance. Absent: scleral icterus, conjunctival injection ENT exam: Present: normal oropharynx Neck exam: Present: normal inspection Respiratory exam: Present: normal lung sounds bilaterally. Absent: respiratory distress, wheezes, rales, rhonchi, stridor, accessory muscle use Cardiovascular Exam: Present: regular rate, normal rhythm, normal heart sounds. Absent: systolic murmur, diastolic murmur, rubs, gallop GI/Abdominal exam: Present: soft, tenderness, other (The Emre-Stone insertion site does have mild surrounding erythema and some fullness.). Absent: distended, guarding, rebound, rigid, mass Extremities exam: Present: normal inspection, normal capillary refill. Absent: pedal edema, calf tenderness Back exam: Present: normal inspection. Absent: CVA tenderness (R), CVA tenderne ss (L) Neurological exam: Present: alert Skin exam: Present: warm, dry, intact, normal color. Absent: rash Disposition Referrals: Dominik Ashton MD [Primary Care Provider] - 1-2 days
[2024-03-04] MEDS: SODIUM CHLORIDE 0.9% 1,000 ML IV STA (22:00)
[2024-03-04] MEDS: MORPHINE SULFATE 4 MG/ML SYRINGE IV STA ×2 (22:01→22:51)
[2024-03-04 22:03] LABS: Basophils % (A) 0 %; Eosinophils # (A) 0.2 k/uL (0-0.7); Eosinophils % (A) 1 %; HCT 37.6 % (39.0-53.0); HGB 12.7 gm/dL (13.0-17.5); Lymphocytes % (A) 4 %; MCH 32.3 pg (25.0-35.0); MCHC 33.7 g/dL (31.0-37.0); MCV 95.7 fL (80.0-100.0); Monocytes # (A) 0.5 k/uL (0-1.0); Monocytes % (A) 2 %; Neutrophils # (A) 21.9 k/uL (1.3-7.7); Neutrophils % (A) 93 %; Platelet Count 712 k/uL (150-450); RBC 3.93 m/uL (4.30-5.90); RDW 11.9 % (11.5-15.5); WBC 23.7 k/uL (3.8-10.6)
[2024-03-04 22:21] LABS: ALT 50 U/L (4-49); AST 26 U/L (17-59); African American GFR (CKD) >90 (>60 ml/min/1.73 sqM); Albumin 3.8 g/dL (3.5-5.0); Alkaline Phosphatase 177 U/L (38-126); Amylase 52 U/L (30-110); Anion Gap 7 mmol/L; Blood Urea Nitrogen 11 mg/dL (9-20); C Reactive Protein 8.9 mg/dL (<1.0); Calcium 9.3 mg/dL (8.4-10.2); Carbon Dioxide 27 mmol/L (22-30); Chloride 92 mmol/L (98-107); Glucose 153 mg/dL (74-99); Lipase 199 U/L (23-300); Non-African American GFR(CKD) >90 (>60 ml/min/1.73 sqM); Potassium 4.6 mmol/L (3.5-5.1); Sodium 126 mmol/L (137-145); Total Protein 6.8 g/dL (6.3-8.2)
[2024-03-04] MEDS: ONDANSETRON 4 MG/2 ML VIAL IVP STA (22:50)
[2024-03-04] MEDS: IOPAMIDOL CONTRAST (ORAL USE) VIAL PO PRN (22:51)
--- NOTE | 2024-03-05 | CT ---
EXAM: CT Abdomen and Pelvis With Intravenous Contrast CLINICAL HISTORY: ITS.REASON CT Reason: abdominal pain TECHNIQUE: Axial computed tomography images of the abdomen and pelvis with intravenous contrast. CTDI is 19.2 mGy and DLP is 1059.4 mGy-cm. This CT exam was performed using one or more of the following dose reduction techniques: automated exposure control, adjustment of the mA and/or kV according to patient size, and/or use of iterative reconstruction technique. COMPARISON: No relevant prior studies available. FINDINGS: Lung bases: Unremarkable. No mass. No consolidation. ABDOMEN: Liver: Unremarkable. No mass. Gallbladder and bile ducts: Unremarkable. No calcified stones. No ductal dilation. Pancreas: Unremarkable. No mass. No ductal dilation. Spleen: Unremarkable. No splenomegaly. Adrenals: Unremarkable. No mass. Kidneys and ureters: Unremarkable. No solid mass. No hydronephrosis. Stomach and bowel: Moderate fecal retention, correlate for constipation. No obstruction. No mucosal thickening. PELVIS: Appendix: No findings to suggest acute appendicitis. Bladder: Unremarkable. No mass. Reproductive: Unremarkable as visualized. ABDOMEN and PELVIS: Intraperitoneal space: Percutaneous catheter terminates in the RIGHT upper quadrant. Mild free fluid in the RIGHT upper quadrant/gallbladder fossa. No free air. Bones/joints: No acute fracture. No dislocation. Soft tissues: Unremarkable. Vasculature: Unremarkable. No abdominal aortic aneurysm. Lymph nodes: Unremarkable. No enlarged lymph nodes. IMPRESSION: 1. Percutaneous catheter terminates in the RIGHT upper quadrant. Mild free fluid in the RIGHT upper quadrant/gallbladder fossa. 2. Moderate fecal retention, correlate for constipation.
[2024-03-05] MEDS: ONDANSETRON 4 MG/2 ML VIAL IVP STA (01:11)
[2024-03-05] MEDS: PEG 3350 (236 GM/BTL) + LYTES 4,000 ML BOTTLE PO ONE (01:12)
[2024-03-05 01:30] LABS: Appearance,Urine Clear (Clear); Bilirubin,Urine Negative (Negative); Blood,Urine Negative (Negative); Color,Urine Yellow; Glucose,Urine (UA) Negative (Negative); Ketones,Urine 1+ (Negative); Leukocyte Esterase,Urine Negative (Negative); Nitrite,Urine Negative (Negative); Protein,Urine Negative (Negative); Specific Gravity,Urine 1.012 (1.001-1.035)
[2024-03-05] MEDS ORDERED: MAG HYDROX/AL HYDROX/SIMETH 30 ML CUP PO PRN (01:41)
[2024-03-05] MEDS ORDERED: ACETAMINOPHEN TAB 325 MG TAB PO PRN (01:41)
[2024-03-05] MEDS ORDERED: NALOXONE 0.4 MG/ML 1 ML VIAL IV PRN (01:41)
[2024-03-05] MEDS ORDERED: ALPRAZolam 1 MG TAB PO PRN (01:55)
[2024-03-05] MEDS ORDERED: haloperidoL 5 MG TAB PO PRN (01:55)
[2024-03-05] MEDS: traZODone HCL 100 MG TAB PO SCH (02:32)
[2024-03-05] MEDS: SODIUM CHLORIDE 0.9% 1,000 ML IV SCH (02:33)
[2024-03-05] MEDS: AMITRIPTYLINE HCL 50 MG TAB PO SCH (02:33)
[2024-03-05] MEDS: haloperidoL 5 MG TAB PO SCH (02:33)
[2024-03-05] MEDS: MORPHINE SULFATE 4 MG/ML SYRINGE IV PRN (03:45)
[2024-03-05] MEDS: KETOROLAC 15 MG/ML 1 ML VIAL IVP PRN (06:21)
[2024-03-05] MEDS: PANTOPRAZOLE 40 MG/10 ML VIAL IV SCH (09:34)
[2024-03-05] MEDS: LACTULOSE 20 GM/30 ML CUP PO SCH (09:34)
[2024-03-05] MEDS: NON FORMULARY DRUG (Lisdexamfetamine Dimesylate [Vyvanse] 70 MG Capsule) PO SCH (10:02)
--- NOTE | 2024-03-05 13:28 | P.GSHP ---
History of Present Illness H&P Date: 03/05/24 CHIEF COMPLAINT: Abdominal pain HISTORY OF PRESENT ILLNESS: This is a 53-year-old male with a recent laparoscopic cholecystectomy for gangrenous cholecystitis about [address] Hermosillo. Patient reports that yesterday he started to have increase in abdominal pain. Patient describes pain in the suprapubic area as well as right upper quadrant. But then reports that it hurts all over the abdomen. Patient reports he has not had a bowel movement in a week. He has been nauseated. He has had some vomiting. He had a CT scan abdomen and pelvis completed that reported percutaneous catheter terminates in the right upper quadrant. Mild free fluid in the right upper quadrant/gallbladder fossa. Moderate fecal retention correlate for constipation. Patient was started on lactulose. He did have elevated white count and [place] mildly tachycardic. Patient reports his JUSTO drain output had been about 60 mL daily and has decreased since yesterday. Per nursing staff JUSTO drain had 10 mL serosanguineous output today. Patient also having urinary retention required to be straight cathed x 2 and is having a Rivera catheter placed. PAST MEDICAL HISTORY: COPD, hyperlipidemia, bipolar, borderline disorder, anxiety, PTSD PAST SURGICAL HISTORY: See below MEDICATIONS: See below ALLERGIES: See below SOCIAL HISTORY: No illicit drug use. REVIEW OF SYSTEMS: CONSTITUTIONAL: Denies fever or chills. HEENT: Denies blurred vision, vision changes, or eye pain. Denies hemoptysis CARDIOVASCULAR: Denies chest pain or pressure. RESPIRATORY: No shortness of breath. GASTROINTESTINAL: See HPI for pertinent findings HEMATOLOGIC: Denies bleeding disorders. GENITOURINARY: Denies any blood in urine or increased urinary frequency. SKIN: Denies pruitis. Denies rash. PHYSICAL EXAM: VITAL SIGNS: Reviewed GENERAL: Well-developed in no acute distress. HEENT: No sclera icterus. Extraocular movements grossly intact. Moist buccal mucosa. Head is atraumatic, normocephalic. No nasal drainage. ABDOMEN: Soft. Mildly distended. Diffuse tenderness. He is tender with palpation to the suprapubic area and right upper quadrant. JUSTO drain serosanguineous drainage, possible bilious color. Small amount of mild erythema around JUSTO drain site insertion. No drainage noted. NEUROLOGIC: Alert and oriented. Cranial nerves II through XII grossly intact. LABORATORY DATA: WBC 23.7 Hgb 12.7 platelets 712 Sodium 126 potassium 4.6 creatinine 0.93 Lactic acid 1.2 Total bilirubin 1.0 AST 26 ALT 50 alk phos 177 CRP 8.9 Lipase 199 IMAGING: CT scan abdomen pelvis as stated above ASSESSMENT: 1. Abdominal pain 2. Leukocytosis with abdominal pain and recent laparoscopic cholecystectomy. CT scan had reported mild free fluid in the right upper quadrant. Need to rule out bile leak. 3. Constipation 4. Urinary retention PLAN: -HIDA scan ordered to rule out bile leak -Rivera catheter placed for urinary retention -Continue lactulose twice a day for constipation -Repeat labs now and in a.m. -Continue antibiotic -Medical service consulted for medical management -Continue pain management -Continue antiemetics -GI prophylaxis Protonix and DVT prophylaxis subcu heparin Physician Configuration Analyst note has been reviewed by physician. Signing provider agrees with the documented findings, assessment, and plan of care. I have personally seen and examined the patient, reviewed the LACE PINNER /PAs history, exam and MDM and agree with the assessment and plan as written. Based on total visit time, I have performed more than 50% of the visit. As above: Patient came to the ER last night with increasing abdominal pain. Was found to have significant leukocytosis. Per ER discussion no bile seen in the drain that was left at the time of surgery. When I saw the patient he had complaints of diffuse tenderness without peritoneal signs. Drain was milked and there was a gold color to the fluid suggesting possible tinge of bile. HIDA scan was ordered showing suspected bile leak. As the afternoon progressed waiting for the HIDA scan results his drain was noted to appear olive green in color. Patient unfortunately is only having about 10 to 25 cc of output per shift and CAT scan showing some perihepatic fluid and pelvic fluid. Not convinced the drain is working appropriately and adequately. Patient will require transfer to tertiary care center for GI evaluation and ERCP with stent placement to control this bile leak in all likelihood. In the meanwhile given the patient's climbing white blood cell count, tachycardia, and now malou bilious drainage will proceed with diagnostic laparoscopy with washout and additional drain placement. Possible laparotomy, possible control of bile leak if seen. Risks of bleeding, infection, progressive sepsis, persistent bile leak, possible need for further surgery, bile duct injury, bowel injury, conversion to an open procedure reviewed. He understands and wishes to proceed. Past Medical History Past Medical History: COPD, Hyperlipidemia Additional Past Medical History / Comment(s): bipolar, borderline disorder, anxiety ptsd, urinary retention/stright cath History of Any Multi-Drug Resistant Organisms: None Reported Past Surgical History: Orthopedic Surgery Additional Past Surgical History / Comment(s): kidney bladder, cholecystectomy 02/26/24 Past Psychological History: Anxiety, Bipolar, Depression, Panic Disorder, PTSD, Schizoaffective Disorder Smoking Status: Current every day smoker, Vaper Past Alcohol Use History: Occasional Past Drug Use History: None Reported - Past Family History Mother History Unknown: Yes Medications and Allergies Home Medications Medication Instructions Recorded Confirmed Type ALPRAZolam [Xanax] 1 mg PO QID PRN 02/25/24 03/05/24 History Amitriptyline HCl [Elavil] 50 mg PO HS 02/25/24 03/05/24 History Atorvastatin [Lipitor] 10 mg PO HS 02/25/24 03/05/24 History Haloperidol Decanoate [Haldol D] 200 mg IM Q21D 02/25/24 03/05/24 History Lisdexamfetamine Dimesylate 70 mg PO DAILY 02/25/24 03/05/24 History [Vyvanse] haloperidoL [Haldol] 5 mg PO DAILY PRN 02/25/24 03/05/24 History haloperidoL [Haldol] 5 mg PO HS 02/25/24 03/05/24 History traZODone HCL 300 mg PO HS 02/25/24 03/05/24 History Docusate [Colace] 100 mg PO BID #30 capsule 02/27/24 03/05/24 Rx HYDROcodone/APAP 5-325MG [[place] 1 tab PO Q6HR PRN 3 Days #12 tab 02/27/2403/05 Rx 5-325] Allergies Allergy/AdvReac Type Severity Reaction Status Date / Time desipramine HCl Allergy Rash/Hives Verified 03/05/24 07:04 [From Norpramin] diphenhydramine HCl Allergy Nausea & Verified 03/05/24 07:04 [From Benadryl] Vomiting grapefruit [Grapefruit] Allergy Swelling Verified 03/05/24 07:04 hydroxyzine HCl Allergy Nausea & Verified 03/05/24 07:04 [From Vistaril] Vomiting hydroxyzine pamoate Allergy Nausea & Verified 03/05/24 07:04 [From Vistaril] Vomiting olanzapine [From Zyprexa] Allergy Confusion Verified 03/05/24 07:04 orange juice [[place] Juice] Allergy Blisters Verified 03/05/24 07:04 pineapple [Pineapple] Allergy Swelling Verified 03/05/24 07:04 quetiapine fumarate Allergy Rapid Verified 03/05/24 07:04 [From Seroquel] Heart Rate sulfamethoxazole AdvReac Rash/Hives Verified 03/05/24 07:04 [From Bactrim] tomato [Tomato] AdvReac Swelling Verified 03/05/24 07:04 trimethoprim [From Bactrim] AdvReac Rash/Hives Verified 03/05/24 07:04 Surgical - Exam Vital Signs Temp Pulse Resp BP Pulse Ox 98 F 89 18 132/89 98 03/04/24 22:04 03/04/24 22:04 03/04/24 22:04 03/04/24 22:04 03/04/24 22:04 Results - Labs 03/05/24 15:04 03/05/24 15:04 Abnormal Lab Results - Last 24 Hours (Table) 03/04/24 03/04/24 03/05/24 Range/Units 21:57 21:57 01:38 WBC 23.7 H (3.8-10.6) k/uL RBC 3.93 L (4.30-5.90) m/uL Hgb 12.7 L (13.0-17.5) gm/dL Hct 37.6 L (39.0-53.0) % Plt Count 712 H (150-450) k/uL Neutrophils # 21.9 H (1.3-7.7) k/uL Sodium 126 L (137-145) mmol/L Chloride 92 L (98-107) mmol/L Glucose 153 H (74-99) mg/dL ALT 50 H (4-49) U/L Alkaline Phosphatase 177 H (38-126) U/L C-Reactive Protein 8.9 H (<1.0) mg/dL Urine Ketones 1+ H (Negative) Diabetes panel 03/04/24 Range/Units 21:57 Sodium 126 L (137-145) mmol/L Potassium 4.6 (3.5-5.1) mmol/L Chloride 92 L (98-107) mmol/L Carbon Dioxide 27 (22-30) mmol/L BUN 11 (9-20) mg/dL Creatinine 0.93 (0.66-1.25) mg/dL Glucose 153 H (74-99) mg/dL Calcium 9.3 (8.4-10.2) mg/dL AST 26 (17-59) U/L ALT 50 H (4-49) U/L Alkaline Phosphatase 177 H (38-126) U/L Total Protein 6.8 (6.3-8.2) g/dL Albumin 3.8 (3.5-5.0) g/dL Calcium panel 03/04/24 Range/Units 21:57 Calcium 9.3 (8.4-10.2) mg/dL Albumin 3.8 (3.5-5.0) g/dL Pituitary panel 03/04/24 Range/Units 21:57 Sodium 126 L (137-145) mmol/L Potassium 4.6 (3.5-5.1) mmol/L Chloride 92 L (98-107) mmol/L Carbon Dioxide 27 (22-30) mmol/L BUN 11 (9-20) mg/dL Creatinine 0.93 (0.66-1.25) mg/dL Glucose 153 H (74-99) mg/dL Calcium 9.3 (8.4-10.2) mg/dL Adrenal panel 03/04/24 Range/Units 21:57 Sodium 126 L (137-145) mmol/L Potassium 4.6 (3.5-5.1) mmol/L Chloride 92 L (98-107) mmol/L Carbon Dioxide 27 (22-30) mmol/L BUN 11 (9-20) mg/dL Creatinine 0.93 (0.66-1.25) mg/dL Glucose 153 H (74-99) mg/dL Calcium 9.3 (8.4-10.2) mg/dL Total Bilirubin 1.0 (0.2-1.3) mg/dL AST 26 (17-59) U/L ALT 50 H (4-49) U/L Alkaline Phosphatase 177 H (38-126) U/L Total Protein 6.8 (6.3-8.2) g/dL Albumin 3.8 (3.5-5.0) g/dL
--- NOTE | 2024-03-05 15:14 | NM ---
EXAMINATION TYPE: NM hepatobiliary wo EF DATE OF EXAM: 03/05/2024 COMPARISON: CT abdomen and pelvis 02/25/2024, 02/25/2024 CLINICAL INDICATION: Male, 53 years old with history of abdominal pain, recent lap luana; TECHNIQUE: After the intravenous administration of 5.31 mCi Tc 99m Mebrofenin hepatobiliary scintigra phy is performed. Immediate images post injection. FINDINGS: Normal uptake of radiotracer is identified within the liver within 5 minutes. The gallbladder is not identified consistent reported history of cholecystectomy. Patient vomited during the exam which limi ts evaluation. At 15 to 20 minutes there is curvilinear radiotracer inferior to the right hepatic lob e corresponding to position of drainage catheter. Radiotracer uptake is identified within the small b owel at 45 minutes. No other radiotracer activity identified. IMPRESSION: Postcholecystectomy changes with radiotracer uptake identified coursing through right upper quadrant drainage catheter which raises concern for biliary leak. No other sites of abnormal radiotracer ident ified. [facility], , 03/05/2024 3:12 PM
[2024-03-05] MEDS: ONDANSETRON 4 MG/2 ML VIAL IVP PRN (15:16)
[2024-03-05 15:28] LABS: HCT 38.8 % (39.0-53.0); MCH 32.4 pg (25.0-35.0); MCHC 33.4 g/dL (31.0-37.0); Mean Platelet Volume 6.6; Platelet Count 797 k/uL (150-450); RDW 12.5 % (11.5-15.5); WBC 41.9 k/uL (3.8-10.6)
[2024-03-05 15:33] LABS: ALT 42 U/L (4-49); AST 26 U/L (17-59); African American GFR (CKD) >90 (>60 ml/min/1.73 sqM); Albumin 3.9 g/dL (3.5-5.0); Albumin/Globulin Ratio 1.3; Alkaline Phosphatase 227 U/L (38-126); Anion Gap 9 mmol/L; Blood Urea Nitrogen 14 mg/dL (9-20); Calcium 9.6 mg/dL (8.4-10.2); Carbon Dioxide 24 mmol/L (22-30); Chloride 92 mmol/L (98-107); Glucose 148 mg/dL (74-99); Non-African American GFR(CKD) 82 (>60 ml/min/1.73 sqM); Sodium 125 mmol/L (137-145); Total Bilirubin 1.8 mg/dL (0.2-1.3); Total Protein 6.9 g/dL (6.3-8.2)
[2024-03-05] MEDS: TAMSULOSIN 0.4 MG CAP.ER.24H PO SCH (15:55)
[2024-03-05 16:19] LABS: Band Neutrophils % 20 %; Lymphocytes # (M) 1.26 k/uL (1.0-4.8); Monocytes # (M) 0.42 k/uL (0-1.0); Neutrophils % (M) 76 %; Nucleated Red Blood Cells 0 /100 WBC (0-0); Total Cells Counted 100
[2024-03-05] MEDS ORDERED: NEOSTIGMINE 1 MG/ML 10 ML VIAL ONE (18:00)
[2024-03-05] MEDS ORDERED: HEPARIN SODIUM,PORCINE 5,000 UNIT/ML 1 ML VIAL ONE (18:00)
[2024-03-05] MEDS ORDERED: PROPOFOL 10 MG/ML 20 ML VIAL IV ONE (18:00)
[2024-03-05] MEDS ORDERED: fentaNYL (PF) 50 MCG/ML 2 ML AMP ONE (18:00)
[2024-03-05] MEDS ORDERED: ROCURONIUM 10 MG/ML (5 ML VIAL) IV ONE (18:00)
[2024-03-05] MEDS ORDERED: GLYCOPYRROLATE 0.2 MG/ML 2 ML VIAL ONE (18:00)
[2024-03-05] MEDS ORDERED: SUCCINYLCHOLINE CHLORIDE 200 MG/10 ML VIAL IV ONE (18:00)
[2024-03-05] MEDS ORDERED: LIDOCAINE 1% INJ 10MG/ML (20 ML MDV) ONE (18:00)
[2024-03-05] MEDS ORDERED: PHENYLEPHRINE-0.9% NACL SYG 1,000 MCG/10 ML SYRINGE ONE (18:00)
[2024-03-05] MEDS ORDERED: MIDAZOLAM 2 MG/2 ML VIAL ONE (18:00)
[2024-03-05] MEDS: SODIUM CHLORIDE 0.9% 1,000 ML IV ONE (18:02)
[2024-03-05] MEDS: PIPERACILLIN-TAZOBACTAM 3.375 GM in SODIUM CHLORIDE 0.9% 100 ML IVPB SCH (18:22)
[2024-03-05] MEDS: LACTATED RINGERS 1,000 ML IV ONE (18:22)
[2024-03-05] MEDS: LIDOCAINE 1%-EPI 1:100,000 20 ML VIAL SQ ONE (18:28)
[2024-03-05] MEDS: HEPARIN SODIUM,PORCINE 5,000 UNIT/ML 1 ML VIAL SQ SCH (18:32)
[2024-03-05] MEDS ORDERED: IPRATROPIUM-ALBUTEROL 3 ML NEB INHALATION PRN (18:58)
--- NOTE | 2024-03-05 19:00 | P.CONS ---
History of Present Illness - Reason for Consult Consult date: 03/05/24 Medical management Requesting physician: Regan Hermosillo - Chief Complaint Abdominal pain - History of Present Illness 53-year-old patient, with Dr. Santos Ashton. On February 25 patient underwent a laparoscopic cholecystectomy for gangrenous cholecystitis by Dr Hermosillo. We discharged home with a drain. Gallbladder was reported to be very inflamed evidence of gangrenous wall changes. Patient did not require any antibiotics upon discharge. Patient states continues to have increasing pain in the abdomen since discharge. Has not had a bowel movement since then. Patient is discharged on February 26. Patient is having serosanguineous discharge to the JUSTO drain. Denies any fever. Patient did vomit yesterday. Patient does self catheterize himself occasionally. Review of systems: GEN.: Tired decreased appetite EYES: None HEENT: None NECK: None RESPIRATORY: None CARDIOVASCULAR: None GASTROINTESTINAL: As above GENITOURINARY: [Sometimes trouble urinating with self-catheterization occasionally MUSCULOSKELETAL: None LYMPHATICS: None HEMATOLOGICAL: None PSYCHIATRY: None NEUROLOGICAL: None Social history: Lives with his mother. Smokes 7-8 cigarettes a day. Usually a pack a day. Not working. Physical examination: VITAL SIGNS: 100.2, 127, 16, 125 x 77, 94% room air GENERAL: BMI 23.1, laying in bed tired appearing. EYES: Pupils equal. Conjunctiva sagrario l. HEENT: External appearance of nose and ears normal, oral cavity grossly normal. NECK: JVD not raised; masses not palpable. HEART: First and second heart sounds are normal; no edema. LUNGS: Respiratory rate increased, diminished breath sounds. ABDOMEN: Soft, slightly distended. Diffuse tenderness. No guarding rigidity. Right-sided JUSTO drain with serosanguineous output, liver spleen not palpable, no masses palpable. PSYCH: Alert and oriented x3; mood and affect sagrario l. MUSCULOSKELETAL:No Clubbing/cyanosis;muscles-grossly intact NEUROLOGICAL: Cranial nerves grossly intact; no facial asymmetry, power and sensation grossly intact. LYMPHATICS: No lymph nodes palpable in the axilla and neck INVESTIGATIONS, reviewed in the clinical context: March 05: White count 41.9 hemoglobin 13 platelets 797 sodium 125 potassium 5 BUN 14 creatinine 1.05 total bilirubin 1.8 AST 26 ALT 42 alkaline phos 227 HIDA scan: Cholecystectomy changes with radiotracer uptake identified coursing through the right upper quadrant drainage catheter which raises concern for biliary leak. CT abdomen: Percutaneous catheter terminates in the right upper quadrant. Mild free fluid. Moderate fecal retention. Assessment and plan: -Patient presents with increasing abdominal pain after being discharged about 7 days ago. Hepatobiliary scan suggesting biliary leak. Patient has a low-grade fever tachycardia elevated white count. CT abdomen does not show any local fluid collection. IV Zosyn. N.p.o. -Sepsis from possibly secondary infection IV Zosyn. IV fluids. Blood cultures -Severe constipation/obstipation postsurgical. No BM for last [address] scan showing the same. Laxatives. May need Dulcolax suppository/enema. -Bipolar disorder -Anxiety/PTSD -Chronic urine bladder outflow obstruction with intermittent catheterization Add Flomax -COPD N/A current smoker DuoNeb if needed -Reactive thrombocytosis -Chronic nicotine dependence cigarette smoker Nicotine patch. Patient counseled -Hyponatremia likely hypovolemic Normal saline. -Full code Patient NPO. Except medications. IV fluids. Antibiotics IV Zosyn. Laxatives. Follow-up with surgery. Past Medical History Past Medical History: COPD, Hyperlipidemia Additional Past Medical History / Comment(s): bipolar, borderline disorder, anxiety ptsd, urinary retention/stright cath History of Any Multi-Drug Resistant Organisms: None Reported Past Surgical History: Orthopedic Surgery Additional Past Surgical History / Comment(s): kidney bladder, cholecystectomy 02/26/24 Past Psychological History: Anxiety, Bipolar, Depression, Panic Disorder, PTSD, Schizoaffective Disorder Smoking Status: Current every day smoker, Vaper Past Alcohol Use History: Occasional Past Drug Use History: None Reported - Past Family History Mother History Unknown: Yes Medications and Allergies Home Medications Medication Instructions Recorded Confirmed Type ALPRAZolam [Xanax] 1 mg PO QID PRN 02/25/24 03/05/24 History Amitriptyline HCl [Elavil] 50 mg PO HS 02/25/24 03/05/24 History Atorvastatin [Lipitor] 10 mg PO HS 02/25/24 03/05/24 History Haloperidol Decanoate [Haldol D] 200 mg IM Q21D 02/25/24 03/05/24 History Lisdexamfetamine Dimesylate 70 mg PO DAILY 02/25/24 03/05/24 History [Vyvanse] haloperidoL [Haldol] 5 mg PO DAILY PRN 02/25/24 03/05/24 History haloperidoL [Haldol] 5 mg PO HS 02/25/24 03/05/24 History traZODone HCL 300 mg PO HS 02/25/24 03/05/24 History Docusate [Colace] 100 mg PO BID #30 capsule 02/27/24 03/05/24 Rx HYDROcodone/APAP 5-325MG [[place] 1 tab PO Q6HR PRN 3 Days #12 tab 02/27/24 03/05/24 Rx 5-325] Allergies Allergy/AdvReac Type Severity Reaction Status Date / Time desipramine HCl Allergy Rash/Hives Verified 03/05/24 07:04 [From Norpramin] diphenhydramine HCl Allergy Nausea & Verified 03/05/24 07:04 [From Benadryl] Vomiting grapefruit [Grapefruit] Allergy Swelling Verified 03/05/24 07:04 hydroxyzine HCl Allergy Nausea & Verified 03/05/24 07:04 [From Vistaril] Vomiting hydroxyzine pamoate Allergy Nausea & Verified 03/05/24 07:04 [From Vistaril] Vomiting olanzapine [From Zyprexa] Allergy Confusion Verified 03/05/24 07:04 orange juice [[place] Juice] Allergy Blisters Verified 03/05/24 07:04 pineapple [Pineapple] Allergy Swelling Verified 03/05/24 07:04 quetiapine fumarate Allergy Rapid Verified 03/05/24 07:04 [From Seroquel] Heart Rate sulfamethoxazole AdvReac Rash/Hives Verified 03/05/24 07:04 [From Bactrim] tomato [Tomato] AdvReac Swelling Verified 03/05/24 07:04 trimethoprim [From Bactrim] AdvReac Rash/Hives Verified 03/05/24 07:04 Physical Exam Vitals: Vital Signs Temp Pulse Pulse Resp BP BP Pulse Ox 03/05/24 18:01 117 H 121/82 03/05/24 14:02 100.2 F H 127 H 16 125/77 94 L 03/05/24 07:00 99.3 F 86 16 125/81 99 03/05/24 03:31 98.1 F 109 H 16 144/100 96 03/05/24 02:55 104 H 18 152/103 94 L 03/04/24 22:04 98 F 89 18 132/89 98 Intake and Output 03/05/24 03/05/24 03/05/24 06:59 14:59 22:59 Intake Total 118 100 Output Total 335 375 450 Balance -335 257 -350 Intake: IV 100 Oral 118 Output: Drainage 10 50 Right Abdomen 10 50 Urine 325 375 400 Straight 325 400 Other: Voiding Method Indwelling Catheter Weight 77.111 kg Results CBC & Chem 7: 03/05/24 15:04 03/05/24 15:04 Labs: Abnormal Lab Results - Last 24 Hours (Table) 03/04/24 03/04/24 03/05/24 Range/Units 21:57 21:57 01:38 WBC 23.7 H (3.8-10.6) k/uL RBC 3.93 L (4.30-5.90) m/uL Hgb 12.7 L (13.0-17.5) gm/dL Hct 37.6 L (39.0-53.0) % Plt Count 712 H (150-450) k/uL Neutrophils # 21.9 H (1.3-7.7) k/uL Neutrophils # (Manual) (1.3-7.7) k/uL Sodium 126 L (137-145) mmol/L Chloride 92 L (98-107) mmol/L Glucose 153 H (74-99) mg/dL Total Bilirubin (0.2-1.3) mg/dL ALT 50 H (4-49) U/L Alkaline Phosphatase 177 H (38-126) U/L C-Reactive Protein 8.9 H (<1.0) mg/dL Urine Ketones 1+ H (Negative) 03/05/24 03/05/24 Range/Units 15:04 15:04 WBC 41.9 H (3.8-10.6) k/uL RBC 4.00 L (4.30-5.90) m/uL Hgb (13.0-17.5) gm/dL Hct 38.8 L (39.0-53.0) % Plt Count 797 H (150-450) k/uL Neutrophils # (1.3-7.7) k/uL Neutrophils # (Manual) 40.20 H (1.3-7.7) k/uL Sodium 125 L (137-145) mmol/L Chloride 92 L (98-107) mmol/L Glucose 148 H (74-99) mg/dL Total Bilirubin 1.8 H (0.2-1.3) mg/dL ALT (4-49) U/L Alkaline Phosphatase 227 H (38-126) U/L C-Reactive Protein (<1.0) mg/dL Urine Ketones (Negative)
--- NOTE | 2024-03-05 19:11 | P.OP ---
Date of Procedure: 03/05/24 Procedure(s) Performed: PREOPERATIVE DIAGNOSIS: Biliary leak POSTOPERATIVE DIAGNOSIS: Same PROCEDURE: Laparoscopic drainage of bile leak with second drain placement SURGEON: Mercedes EBL: 5 cc ANESTHESIA: General COMPLICATIONS: None OPERATIVE PROCEDURE: Patient placed on the operative table in the supine posit ion per the patient's abdomen including the prior drain was prepped and draped sterilely. The previous supraumbilical incision was bluntly dissected and entrance into the peritoneal cavity occurred bluntly through the prior fascial opening using a optical 5 mm trocar. Insufflation took place to 15 mm. Patient had a fairly significant ileus with distended loops of small bowel throughout. A nasogastric tube was placed by anesthesia and 400 cc was evacuated prior to the beginning of my surgery. The patient had bilious fluid present above the liver and also in the pelvis. We were able to place a second 5 mm trocar in the left paramedian mid epigastric region as well as a 5 mm trocar through the previous epigastric incision site. The previous drain was repositioned into the gallbladder fossa. There was fairly significant inflammatory changes with old blood present in the gallbladder fossa. I could not visualize appropriate anatomic structures to adequately assess the actual site of bile leak. Once I had the drain positioned appropriately a second drain was placed lateral and slightly inferior to the previous drain placement. This was performed after making a small incision and placing a trocar grabbing and new drain that was advanced through the epigastric trocar site and pulling it through the skin. This drain was sutured in place using a 2-0 nylon stitch. An additional drain stitch was also placed on the previously placed drain tube. The abdomen was irrigated with 1 L of saline. No further bilious drainage was noted both in the pelvis right gutter or supra hepatic location. No active bilious drainage was seen from the visualized gallbladder fossa. The pneumoperitoneum was evacuated. Both drains were hooked up to bulb suction. Incision was closed at both locations using interrupted 4-0 Monocryl sutures. Skin glue and sterile dressings were applied. DISPOSITION: Stable to recovery room. Plan for transfer to ICU for observation overnight. Case discussed with pulmonary. Called the patient's mother Linda by phone. No answer and I did leave a message. Called the [facility] team. They are looking to see if there is a bed available.
[2024-03-05 20:47] LABS: Glucose,Whole Blood 151 mg/dL (70-110)
[2024-03-05] MEDS ORDERED: ATORVASTATIN 10 MG TAB PO SCH (21:00)
[2024-03-05] MEDS: ACETAMINOPHEN IV (For NPO) 1,000 MG in EMPTY BAG 1 BAG IVPB SCH (21:44)
[2024-03-05] MEDS: NICOTINE 14MG/24HR PATCH TRANSDERM SCH (21:44)
[2024-03-05] MEDS: metroNIDAZOLE-NS PMX 500 MG in SALINE 1 100ML.BAG IVPB SCH (21:45)
[2024-03-05] MEDS: LACTATED RINGERS 1,000 ML IV SCH (23:37)
[2024-03-06 01:08] LABS: African American GFR (CKD) >90 (>60 ml/min/1.73 sqM); Anion Gap 8 mmol/L; Blood Urea Nitrogen 17 mg/dL (9-20); Calcium 8.9 mg/dL (8.4-10.2); Carbon Dioxide 25 mmol/L (22-30); Chloride 93 mmol/L (98-107); Glucose 120 mg/dL (74-99); Non-African American GFR(CKD) 86 (>60 ml/min/1.73 sqM); Potassium 4.6 mmol/L (3.5-5.1); Sodium 126 mmol/L (137-145)
[2024-03-06 03:12] VITALS: PULSE 105
[2024-03-06 03:22] LABS: Basophils % (A) 0 %; Eosinophils # (A) 0.2 k/uL (0-0.7); Eosinophils % (A) 1 %; HCT 36.1 % (39.0-53.0); HGB 11.7 gm/dL (13.0-17.5); Lymphocytes # (A) 0.9 k/uL (1.0-4.8); Lymphocytes % (A) 3 %; MCH 31.7 pg (25.0-35.0); MCHC 32.5 g/dL (31.0-37.0); MCV 97.5 fL (80.0-100.0); Mean Platelet Volume 6.7; Monocytes # (A) 0.5 k/uL (0-1.0); Monocytes % (A) 2 %; Neutrophils # (A) 31.5 k/uL (1.3-7.7); Neutrophils % (A) 95 %; Platelet Count 732 k/uL (150-450); RDW 12.4 % (11.5-15.5); WBC 33.2 k/uL (3.8-10.6)
[2024-03-06 03:39] LABS: ALT 33 U/L (4-49); AST 25 U/L (17-59); African American GFR (CKD) >90 (>60 ml/min/1.73 sqM); Albumin 3.2 g/dL (3.5-5.0); Alkaline Phosphatase 185 U/L (38-126); Anion Gap 10 mmol/L; Blood Urea Nitrogen 18 mg/dL (9-20); Calcium 9.2 mg/dL (8.4-10.2); Carbon Dioxide 24 mmol/L (22-30); Chloride 93 mmol/L (98-107); Glucose 111 mg/dL (74-99); Non-African American GFR(CKD) 83 (>60 ml/min/1.73 sqM); Potassium 4.6 mmol/L (3.5-5.1); Sodium 127 mmol/L (137-145); Total Bilirubin 1.4 mg/dL (0.2-1.3)
[2024-03-06 03:43] VITALS: BP 144/102; RESP 15; TEMP 99
--- NOTE | 2024-03-06 04:36 | P.CNPUL ---
History of Present Illness Consult date: 03/06/24 Requesting physician: Jeremy Long Reason for consult: other (ICU management) Chief complaint: Abdominal pain History of present illness: Patient is a 53-year-old male with past medical history significant for hyperlipidemia, nicotine dependence, COPD. Of note, patient was recently hospitalized for acute gangrenous cholecystitis status post laparoscopic cholecystectomy done on 02/26/2024. He was discharged home the following day. Approximately 4 days later patient developed severe unrelenting abdominal pain. Associated symptoms including abdominal distention, nausea, vomiting. He was running fevers at home. States he has not had a bowel movement since being discharged from the hospital on 02/27/2024. Abdomen/pelvis CT done arrival in the ED showing a percutaneous catheter terminating the right upper quadrant. Mild free fluid in the right upper quadrant/gallbladder fossa. Moderate fecal retention. A HIDA scan showing postcholecystectomy changes with radiotracer u ptake coursing through the right upper quadrant drainage catheter raising concern for biliary leak. Patient take back to the OR yesterday evening for an exploratory laparotomy with drainage of bile leak and secondary drainage tube placement. Extubated in the postanesthesia care unit and sent to the intensive care unit for postoperative recovery. he was started on empiric antibiotics in the form of Flagyl and Zosyn. Most recent CBC showing worsening leukocytosis with a WBC count of 41.9, hemoglobin 13, platelet 797. CMP: Sodium 125, potassium 5, chloride 92, serum bicarb 24, BUN 14, creatinine 1.05, glucose 148. AST 26, ALT 42, ALP 227. Lipase 199. Amylase 52. Patient is currently being seen in the intensive care unit. He is awake and alert on room air oxygen. No acute distress. His abdomen remains distended but soft. He has laparoscopic incisional sites which are approximated with postoperative dressings clean, dry, and intact. He has 2 JUSTO drainage catheters with a total of 60 cc of drainage since surgery, serosanguineous to cloudy in nature. Did have a low-grade fever earlier of 100.2 F. Heart rate mildly tachycardic around 100 to 110 bpm. Blood pressures remained stable. Lactated Ringer's is infusing in the order of 130 mL/h. No vasopressors have been required. Urine output is adequate around 30 cc/h. Has as needed analgesics ordered. Currently his pain is rated at a 7 on a 10 point numerical scale. Nasogastric tube to low intermittent suction with clear output. Pain worse with moving, coughing and deep breathing. No flatus or BM, No further nausea or vomiting. He is going to need an incentive spirometer. Review of Systems Constitutional: Reports chills, Reports fatigue, Reports fever, Reports poor appetite, Denies weight gain, Denies weight loss Ears, nose, mouth and throat: Denies headache, Denies nasal congestion, Denies nasal discharge, Denies post-nasal drip, Denies sinus pain, Denies sinus pressure, Denies sore throat Cardiovascular: Denies chest pain, Denies dyspnea on exertion, Denies lightheadedness, Denies orthopnea, Denies palpitations, Denies paroxysmal nocturnal dyspnea, Denies shortness of breath, Denies syncope Respiratory: Denies congestion, Denies cough, Denies dyspnea, Denies home oxygen, Denies wheezing Gastrointestinal: Reports as per HPI Genitourinary: Denies dysuria Musculoskeletal: Denies limitation of motion Integumentary: Denies rash Neurological: Denies seizures, Denies syncope Psychiatric: Reports anxiety, Reports depression, Denies suicidal ideation Past Medical History Past Medical History: COPD, Hyperlipidemia Additional Past Medical History / Comment(s): bipolar, borderline disorder, anxiety ptsd, urinary retention/stright cath History of Any Multi-Drug Resistant Organisms: None Reported Past Surgical History: Orthopedic Surgery Additional Past Surgical History / Comment(s): kidney bladder, cholecystectomy 02/26/24 Past Psychological History: Anxiety, Bipolar, Depression, Panic Disorder, PTSD, Schizoaffective Disorder Smoking Status: Current every day smoker, Vaper Past Alcohol Use History: Occasional Past Drug Use History: None Reported - Past Family History Mother History Unknown: Yes Medications and Allergies Home Medications Medication Instructions Recorded Confirmed Type ALPRAZolam [Xanax] 1 mg PO QID PRN 02/25/24 03/05/24 History Amitriptyline HCl [Elavil] 50 mg PO HS 02/25/24 03/05/24 History Atorvastatin [Lipitor] 10 mg PO HS 02/25/24 03/05/24 History Haloperidol Decanoate [Haldol D] 200 mg IM Q21D 02/25/24 03/05/24 History Lisdexamfetamine Dimesylate 70 mg PO DAILY 02/25/24 03/05/24 History [Vyvanse] haloperidoL [Haldol] 5 mg PO DAILY PRN 02/25/24 03/05/24 History haloperidoL [Haldol] 5 mg PO HS 02/25/24 03/05/24 History traZODone HCL 300 mg PO HS 02/25/24 03/05/24 History Docusate [Colace] 100 mg PO BID #30 capsule 02/27/24 03/05/24 Rx HYDROcodone/APAP 5-325MG [[place] 1 tab PO Q6HR PRN 3 Days #12 tab 02/27/24 Rx 5-325] Allergies Allergy/AdvReac Type Severity Reaction Status Date / Time desipramine HCl Allergy Rash/Hives Verified 03/05/24 07:04 [From Norpramin] diphenhydramine HCl Allergy Nausea & Verified 03/05/24 07:04 [From Benadryl] Vomiting grapefruit [Grapefruit] Allergy Swelling Verified 03/05/24 07:04 hydroxyzine HCl Allergy Nausea & Verified 03/05/24 07:04 [From Vistaril] Vomiting hydroxyzine pamoate Allergy Nausea & Verified 03/05/24 07:04 [From Vistaril] Vomiting olanzapine [From Zyprexa] Allergy Confusion Verified 03/05/24 07:04 orange juice [[place] Juice] Allergy Blisters Verified 03/05/24 07:04 pineapple [Pineapple] Allergy Swelling Verified 03/05/24 07:04 quetiapine fumarate Allergy Rapid Verified 03/05/24 07:04 [From Seroquel] Heart Rate sulfamethoxazole AdvReac Rash/Hives Verified 03/05/24 07:04 [From Bactrim] tomato [Tomato] AdvReac Swelling Verified 03/05/24 07:04 trimethoprim [From Bactrim] AdvReac Rash/Hives Verified 03/05/24 07:04 Physical Exam Vitals: Vital Signs Temp Pulse Pulse Pulse Resp BP BP 03/05/24 20:00 102 H 18 134/94 03/05/24 19:45 103 H 18 133/93 03/05/24 19:30 103 H 18 138/92 03/05/24 19:13 99.1 F 101 H 20 135/95 03/05/24 18:01 117 H 03/05/24 14:02 100.2 F H 127 H 16 03/05/24 07:00 99.3 F 86 16 03/05/24 03:31 98.1 F 109 H 16 03/05/24 02:55 104 H 18 152/103 BP Pulse Ox 03/05/24 20:00 99 03/05/24 19:45 95 03/05/24 19:30 100 03/05/24 19:13 99 03/05/24 18:01 121/82 03/05/24 14:02 125/77 94 L 03/05/24 07:00 125/81 99 03/05/24 03:31 144/100 96 03/05/24 02:55 94 L Intake and Output 03/05/24 03/05/24 03/06/24 14:59 22:59 06:59 Intake Total 118 2060 130 Output Total 375 665 30 Balance -257 1395 100 Intake: IV 0 130 Lactated Ringers 1,000 ml 260 130 @ 130 mls/hr IV .[id number] [facility] Rx#:[id number] Oral 118 Output: Gastric Drainage 50 Drainage 50 Right Abdomen 50 Urine 375 560 30 Straight 400 Estimated Blood Loss 5 Other: Voiding Method Indwelling Catheter Indwelling Catheter GENERAL EXAM: Alert, 53-year-old white male, laying supine in bed, fairly comfortable in no apparent distress. HEAD: Normocephalic and atraumatic EYES: Normal reaction of pupils, equal size. NOSE: Clear with pink turbinates. NG tube inserted to low intermittent suction. With clear output THROAT: No erythema or exudates. NECK: No masses, no JVD. CHEST: No chest wall deformity. LUNGS: Equal air entry with no crackles, wheeze, rhonchi or dullness. On room air. No conversational dyspnea or accessory muscle use.. CVS: S1 and S2 normal with no audible murmur, regular rhythm. No extra heart sounds ABDOMEN: Laparoscopic incisions approximated with postoperative dressings clean, dry, intact. 2 JUSTO drains 1 with a serous output and the other with serosanguineous/cloudy output. Abdomen minimally distended, bowel sounds not active, abdomen soft to palpation without organomegaly SPINE: No scoliosis or deformity SKIN: No rashes CENTRAL NERVOUS SYSTEM: No focal deficits, tone is normal in all 4 extremities. EXTREMITIES: There is no peripheral edema, clubbing, or cyanosis. Peripheral pulses are intact. Results - Laboratory Findings CBC and BMP: 03/06/24 02:56 03/06/24 02:56 Abnormal lab findings: Abnormal Labs 03/04/24 03/04/24 03/05/24 21:57 21:57 01:38 WBC 23.7 H RBC 3.93 L Hgb 12.7 L Hct 37.6 L Plt Count 712 H Neutrophils # 21.9 H Neutrophils # (Manual) Sodium 126 L Chloride 92 L Glucose 153 H POC Glucose (mg/dL) Total Bilirubin ALT 50 H Alkaline Phosphatase 177 H C-Reactive Protein 8.9 H Urine Ketones 1+ H 03/05/24 03/05/24 03/05/24 15:04 15:04 20:46 WBC 41.9 H RBC 4.00 L Hgb Hct 38.8 L Plt Count 797 H Neutrophils # Neutrophils # (Manual) 40.20 H Sodium 125 L Chloride 92 L Glucose 148 H POC Glucose (mg/dL) 151 H Total Bilirubin 1.8 H ALT Alkaline Phosphatase 227 H C-Reactive Protein Urine Ketones Assessment and Plan Assessment: Biliary leak, status post exploratory laparotomy with drainage of bile leak and secondary drainage tube placement on 03/05/2024 History of acute gangrenous cholecystitis status post laparoscopic cholecystectomy on 02/26/2024 Abdominal sepsis, patient remains tachycardic, febrile, with leukocytosis Abdominal pain Acute leukocytosis Thrombocytosis Hyponatremia secondary to hypovolemia and poor oral intake Chronic obstructive pulmonary disease, stable Chronic ongoing tobacco dependence, reportedly smokes 1 pack/day History of hyperlipidemia History of bipolar disorder Plan: Patient transferred to intensive care unit Blood pressure remains normotensive, continue IV maintenance fluids Not requiring any vasopressors at this time N.p.o. with nasogastric tube to low intermittent suction Monitor JUSTO drain output Continue empiric antibiotics for abdominal sepsis in the form of Zosyn and Flagyl Continue as needed analgesics Provide patient with incentive spirometer Add as needed bronchodilators Heparin DVT prophylaxis GI prophylaxis Protonix There is a plan for transfer to tertiary care center for GI specialist. Accepting facility is [facility] I have personally seen and examined the patient, performed the documentation and the assessment and plan as written. Number of minutes spent on the visit:20 Time with Patient: Greater than 30
== END 2024-03-06 04:15 | disposition short-term general hospital (02) ==
LOC: EC 21:33 → 6NMEDSUR 03-05 01:41 → 2SICU 03-05 20:07
PROVIDERS: ADMIT Surgery; ATTEND Surgery
DX: K82.8 Other specified diseases of gallbladder (principal); K59.09 Other constipation; K91.89 Other postprocedural complications and disorders of digestive system; Y83.9 Surgical procedure, unspecified as the cause of abnormal reaction of the patient, or of later complication, without mention of misadventure at the time of the procedure; A41.9 Sepsis, unspecified organism; R33.9 Retention of urine, unspecified; D75.838 Other thrombocytosis; E86.1 Hypovolemia; E87.1 Hypo-osmolality and hyponatremia; N32.0 Bladder-neck obstruction; K56.7 Ileus, unspecified; E78.5 Hyperlipidemia, unspecified; F17.210 Nicotine dependence, cigarettes, uncomplicated; J44.9 Chronic obstructive pulmonary disease, unspecified; F25.0 Schizoaffective disorder, bipolar type; F41.0 Panic disorder [episodic paroxysmal anxiety]; F43.10 Post-traumatic stress disorder, unspecified; Z79.899 Other long term (current) drug therapy; Z90.49 Acquired absence of other specified parts of digestive tract; Z88.8 Allergy status to other drugs, medicaments and biological substances; Z88.2 Allergy status to sulfonamides
CPT/HCPCS: 47579; 96376 ×3; 96365 ×2; 96366 ×2; 96375 ×2; 96361; 99285; 36415; 80053 ×3; 80048; 82150; 83605 ×2; 83690; 85025 ×3; 86140; 81003; 87040; 74177; 78226; G0378 ×3; A9537; J2543 ×2; J2250; J0330; J2270 ×2; J1644; J2710; J2405 ×2; J0690; J2003; J3010; J0131 ×2; J1885; J2704; Q9967; J2371; J1836; J1596; J2470